=== PATIENT | female | born 1955 | race African-American/Black ===

== ENCOUNTER 2017-08-14 02:26 | Inpatient (IN) | payer BC ==
[2017-08-14] MEDS ORDERED: NACL 0.9% 3 ML SYG IV (03:30)
[2017-08-14] MEDS ORDERED: BISACODYL (EC) 5 MG TAB PO (03:30)
[2017-08-14] MEDS ORDERED: DOCUSATE SODIUM 100 MG CAP PO (03:30)
[2017-08-14] MEDS ORDERED: ZOLPIDEM 5 MG TAB PO (10:00)
[2017-08-14] MEDS: OLANZAPINE (ODT) 5 MG TAB ODT ×2 (11:30→16:00)
[2017-08-14] MEDS: ACETAMINOPHEN 325 MG TAB PO ×2 (15:58→21:43)
[2017-08-14 16:55] LABS: ADD MAN DIFF? NO
[2017-08-14 16:57] LABS: WHITE BLOOD COUNT 9.5 10^3/ul (4.8-10.8)
[2017-08-14 16:58] LABS: BASOPHIL # 0.1 10^3/ul (0.0-0.1); EOSINOPHILS # 0.4 10^3/ul (0.0-0.5); EOSINOPHILS % 3.7 % (0.0-7.0); HEMATOCRIT 30.7 % (37.0-47.0); HEMOGLOBIN 9.8 g/dl (12.0-16.0); LYMPHOCYTES # 1.8 10^3/ul (0.8-2.9); LYMPHOCYTES % 19.3 % (15.0-51.0); MEAN CORPUSCULAR HEMOGLOBIN 29.9 pg (29.0-33.0); MEAN CORPUSCULAR HGB CONC 31.9 g/dl (32.0-37.0); MEAN CORPUSCULAR VOLUME 93.6 fl (82.0-101.0); MEAN PLATELET VOLUME 9.2 fl (7.4-10.4); MONOCYTE # 1.1 10^3/ul (0.3-0.9); MONOCYTES % 11.4 % (0.0-11.0); NEUTROPHIL # 6.1 10^3/ul (1.6-7.5); NEUTROPHILS % 64.2 % (39.0-77.0); PLATELET COUNT 288 10^3/UL (140-415); RED BLOOD COUNT 3.28 10^6/ul (4.20-5.40); RED CELL DISTRIBUTION WIDTH 17.4 % (11.5-14.5)
[2017-08-14 17:18] LABS: ALANINE AMINOTRANSFERASE 22 IU/L (13-69); ALBUMIN 3.6 g/dl (3.3-4.9); ALBUMIN/GLOBULIN RATIO 0.87; ALKALINE PHOSPHATASE 93 IU/L (42-121); ANION GAP 26 (8-16); ASPARTATE AMINO TRANSFERASE 17 IU/L (15-46); BLOOD UREA NITROGEN 90 mg/dl (7-20); CALCIUM 8.7 mg/dl (8.4-10.2); CARBON DIOXIDE 17 mmol/L (21-31); CHLORIDE 101 mmol/L (97-110); GLUCOSE 75 mg/dl (70-220); POTASSIUM 5.1 mmol/L (3.5-5.1); SODIUM 139 mmol/L (135-144); TOTAL PROTEIN 7.7 g/dl (6.1-8.1)
[2017-08-14 17:19] LABS: PHOSPHORUS 8.8 mg/dl (2.5-4.9)
[2017-08-14 17:19] LABS: MAGNESIUM 2.3 mg/dl (1.7-2.5)
[2017-08-14 17:24] LABS: CREATININE 12.25 mg/dl (0.44-1.00)
[2017-08-14] MEDS: ATORVASTATIN 20 MG TAB PO (21:42)
[2017-08-14 22:02] LABS: HEPATITIS B SURFACE ANTIBODY POSITIVE (NEGATIVE)
[2017-08-14 22:05] LABS: HEPATITIS B SURFACE ANTIGEN NEGATIVE (NEGATIVE)
[2017-08-14] MEDS: HEPARIN 1000 UNITS/ML 10 ML INJ CATHETER (22:58)
[2017-08-15] MEDS ORDERED: OLANZAPINE 2.5 MG TAB PO (09:00)
[2017-08-15] MEDS: FLUOXETINE 10 MG CAP PO (11:00)
[2017-08-15] MEDS: OLANZAPINE (ODT) 5 MG TAB ODT (11:00)
[2017-08-15] MEDS: FERROUS SULFATE (EC) 325 MG TAB PO (11:01)
[2017-08-15] MEDS: CALCIUM ACETATE 667 MG CAP PO (11:03)
[2017-08-15] MEDS: ASPIRIN (EC) 81 MG TAB PO (11:03)
[2017-08-15] MEDS: AMLODIPINE 10 MG TAB PO (11:10)
[2017-08-15] MEDS: LOSARTAN 50 MG TAB PO (11:11)
[2017-08-15] MEDS: ONDANSETRON 4 MG INJ IV (11:33)
[2017-08-15 13:43] LABS: ADD MAN DIFF? NO
[2017-08-15 13:48] LABS: BASOPHIL # 0.1 10^3/ul (0.0-0.1); BASOPHILS % 0.9 % (0.0-2.0); EOSINOPHILS # 0.2 10^3/ul (0.0-0.5); EOSINOPHILS % 2.7 % (0.0-7.0); HEMATOCRIT 30.2 % (37.0-47.0); HEMOGLOBIN 9.6 g/dl (12.0-16.0); LYMPHOCYTES # 1.4 10^3/ul (0.8-2.9); MEAN CORPUSCULAR HEMOGLOBIN 29.9 pg (29.0-33.0); MEAN CORPUSCULAR HGB CONC 31.8 g/dl (32.0-37.0); MEAN CORPUSCULAR VOLUME 94.1 fl (82.0-101.0); MEAN PLATELET VOLUME 9.6 fl (7.4-10.4); MONOCYTE # 1.1 10^3/ul (0.3-0.9); MONOCYTES % 11.7 % (0.0-11.0); NEUTROPHIL # 6.3 10^3/ul (1.6-7.5); NEUTROPHILS % 69.4 % (39.0-77.0); PLATELET COUNT 276 10^3/UL (140-415); RED BLOOD COUNT 3.21 10^6/ul (4.20-5.40); RED CELL DISTRIBUTION WIDTH 17.2 % (11.5-14.5)
[2017-08-15 14:08] LABS: ALANINE AMINOTRANSFERASE 19 IU/L (13-69); ALBUMIN 3.6 g/dl (3.3-4.9); ALBUMIN/GLOBULIN RATIO 0.83; ALKALINE PHOSPHATASE 96 IU/L (42-121); ANION GAP 24 (8-16); ASPARTATE AMINO TRANSFERASE 18 IU/L (15-46); BILIRUBIN,INDIRECT 0.4 mg/dl (0-1.1); BILIRUBIN,TOTAL 0.4 mg/dl (0.2-1.3); BLOOD UREA NITROGEN 47 mg/dl (7-20); CALCIUM 8.9 mg/dl (8.4-10.2); CARBON DIOXIDE 24 mmol/L (21-31); CHLORIDE 96 mmol/L (97-110); CREATININE 7.97 mg/dl (0.44-1.00); GLUCOSE 79 mg/dl (70-220); POTASSIUM 4.8 mmol/L (3.5-5.1); SODIUM 139 mmol/L (135-144); TOTAL PROTEIN 7.9 g/dl (6.1-8.1)
[2017-08-15 14:09] LABS: PHOSPHORUS 6.2 mg/dl (2.5-4.9)
[2017-08-15 14:09] LABS: MAGNESIUM 2.1 mg/dl (1.7-2.5)
[2017-08-15] MEDS: ATORVASTATIN 20 MG TAB PO (20:31)
[2017-08-16] MEDS: ACETAMINOPHEN 325 MG TAB PO ×2 (03:48→05:59)
[2017-08-16] MEDS: AMLODIPINE 10 MG TAB PO (09:00)
[2017-08-16] MEDS: LOSARTAN 50 MG TAB PO (09:00)
[2017-08-16] MEDS: FLUOXETINE 10 MG CAP PO (09:35)
[2017-08-16] MEDS: OLANZAPINE (ODT) 5 MG TAB ODT (09:35)
[2017-08-16] MEDS: FERROUS SULFATE (EC) 325 MG TAB PO (09:35)
[2017-08-16] MEDS: ASPIRIN (EC) 81 MG TAB PO (09:36)
[2017-08-16] MEDS: CALCIUM ACETATE 667 MG CAP PO (09:36)
[2017-08-16 14:11] LABS: ALBUMIN 3.3 g/dl (3.3-4.9); ANION GAP 19 (8-16); BLOOD UREA NITROGEN 38 mg/dl (7-20); CALCIUM 8.5 mg/dl (8.4-10.2); CARBON DIOXIDE 25 mmol/L (21-31); CHLORIDE 97 mmol/L (97-110); CREATININE 6.72 mg/dl (0.44-1.00); GLUCOSE 87 mg/dl (70-220); PHOSPHORUS 4.7 mg/dl (2.5-4.9); SODIUM 137 mmol/L (135-144)
[2017-08-16] MEDS: traMADol 50 MG TAB PO (14:12)
[2017-08-16 14:31] LABS: PHOSPHORUS 4.6 mg/dl (2.5-4.9)
[2017-08-16] MEDS: EPOETIN 10000 UNITS/1 ML INJ (ESRD) SC (17:00)
[2017-08-16] MEDS: ATORVASTATIN 20 MG TAB PO (21:00)
[2017-08-17] MEDS: HYDROCODONE/APAP (5/325) TAB PO ×2 (01:46→11:44)
[2017-08-17] MEDS: AMLODIPINE 10 MG TAB PO (09:19)
[2017-08-17] MEDS: ASPIRIN (EC) 81 MG TAB PO (09:19)
[2017-08-17] MEDS: FLUOXETINE 10 MG CAP PO (09:19)
[2017-08-17] MEDS: CALCIUM ACETATE 667 MG CAP PO (09:19)
[2017-08-17] MEDS: LOSARTAN 50 MG TAB PO (09:20)
[2017-08-17] MEDS: OLANZAPINE (ODT) 5 MG TAB ODT (09:20)
[2017-08-17] MEDS: FERROUS SULFATE (EC) 325 MG TAB PO (09:20)
[2017-08-17 11:42] LABS: ADD MAN DIFF? NO
[2017-08-17 11:47] LABS: BASOPHIL # 0.1 10^3/ul (0.0-0.1); EOSINOPHILS # 0.6 10^3/ul (0.0-0.5); EOSINOPHILS % 6.6 % (0.0-7.0); HEMATOCRIT 32.7 % (37.0-47.0); HEMOGLOBIN 10.1 g/dl (12.0-16.0); LYMPHOCYTES % 22.2 % (15.0-51.0); MEAN CORPUSCULAR HEMOGLOBIN 29.4 pg (29.0-33.0); MEAN CORPUSCULAR HGB CONC 30.9 g/dl (32.0-37.0); MEAN CORPUSCULAR VOLUME 95.3 fl (82.0-101.0); MEAN PLATELET VOLUME 10.6 fl (7.4-10.4); MONOCYTE # 1.1 10^3/ul (0.3-0.9); MONOCYTES % 12.3 % (0.0-11.0); NEUTROPHIL # 5.2 10^3/ul (1.6-7.5); NEUTROPHILS % 57.5 % (39.0-77.0); PLATELET COUNT 280 10^3/UL (140-415); RED BLOOD COUNT 3.43 10^6/ul (4.20-5.40); RED CELL DISTRIBUTION WIDTH 17.2 % (11.5-14.5)
[2017-08-17 12:10] LABS: ALBUMIN 3.6 g/dl (3.3-4.9); ANION GAP 19 (8-16); BLOOD UREA NITROGEN 39 mg/dl (7-20); CALCIUM 8.8 mg/dl (8.4-10.2); CARBON DIOXIDE 25 mmol/L (21-31); CHLORIDE 99 mmol/L (97-110); CREATININE 7.38 mg/dl (0.44-1.00); GLUCOSE 63 mg/dl (70-220); PHOSPHORUS 6.4 mg/dl (2.5-4.9); SODIUM 138 mmol/L (135-144)
[2017-08-17 12:11] LABS: MAGNESIUM 2.1 mg/dl (1.7-2.5)
[2017-08-17 12:25] LABS: PHOSPHORUS 6.1 mg/dl (2.5-4.9)
[2017-08-17] MEDS ORDERED: ALBUMIN HUMAN 25% 50 ML IV (17:00)
[2017-08-17] MEDS ORDERED: SODIUM CHLORIDE 0.9% 1L BAG IV (17:00)
[2017-08-17] MEDS ORDERED: HEPARIN 1000 UNITS/ML 10 ML INJ CATHETER (17:00)
[2017-08-17] MEDS: ATORVASTATIN 20 MG TAB PO (21:06)
[2017-08-18] MEDS: CALCIUM ACETATE 667 MG CAP PO (09:44)
[2017-08-18] MEDS: FLUOXETINE 10 MG CAP PO (09:44)
[2017-08-18] MEDS: ASPIRIN (EC) 81 MG TAB PO (09:44)
[2017-08-18] MEDS: FERROUS SULFATE (EC) 325 MG TAB PO (09:44)
[2017-08-18] MEDS: AMLODIPINE 10 MG TAB PO (09:44)
[2017-08-18] MEDS: LOSARTAN 50 MG TAB PO (09:44)
[2017-08-18] MEDS: OLANZAPINE (ODT) 5 MG TAB ODT (09:44)
[2017-08-18 11:57] LABS: ALBUMIN 3.7 g/dl (3.3-4.9); ANION GAP 22 (8-16); BLOOD UREA NITROGEN 42 mg/dl (7-20); CALCIUM 8.8 mg/dl (8.4-10.2); CARBON DIOXIDE 23 mmol/L (21-31); CHLORIDE 97 mmol/L (97-110); GLUCOSE 72 mg/dl (70-220); PHOSPHORUS 6.5 mg/dl (2.5-4.9); POTASSIUM 4.5 mmol/L (3.5-5.1); SODIUM 137 mmol/L (135-144)
[2017-08-18 12:03] LABS: PHOSPHORUS 6.8 mg/dl (2.5-4.9)
[2017-08-18 12:03] LABS: MAGNESIUM 2.1 mg/dl (1.7-2.5)
[2017-08-18 12:08] LABS: CREATININE 7.66 mg/dl (0.44-1.00)
[2017-08-18] MEDS: HYDROCODONE/APAP (5/325) TAB PO ×2 (12:21→23:20)
[2017-08-18 12:27] LABS: ANION GAP 23 (8-16); BLOOD UREA NITROGEN 43 mg/dl (7-20); CALCIUM 8.8 mg/dl (8.4-10.2); CARBON DIOXIDE 22 mmol/L (21-31); CHLORIDE 98 mmol/L (97-110); GLUCOSE 72 mg/dl (70-220); POTASSIUM 4.5 mmol/L (3.5-5.1); SODIUM 138 mmol/L (135-144)
[2017-08-18 12:34] LABS: CREATININE 7.87 mg/dl (0.44-1.00)
[2017-08-18] MEDS: ONDANSETRON 4 MG INJ IV ×2 (14:47→23:20)
[2017-08-18] MEDS ORDERED: EPOETIN ALFA 1,000 UNITS/0.1 ML VIAL SC (17:00)
[2017-08-18] MEDS: HEPARIN 1000 UNITS/ML 10 ML INJ CATHETER (17:56)
[2017-08-18] MEDS: ATORVASTATIN 20 MG TAB PO (22:00)
[2017-08-19] MEDS: ONDANSETRON 4 MG INJ IV (04:44)
[2017-08-19] MEDS: HYDROCODONE/APAP (5/325) TAB PO ×2 (04:44→18:29)
[2017-08-19] MEDS: ASPIRIN (EC) 81 MG TAB PO ×2 (09:00→09:23)
[2017-08-19] MEDS: OLANZAPINE (ODT) 5 MG TAB ODT ×2 (09:00→09:23)
[2017-08-19] MEDS: AMLODIPINE 10 MG TAB PO ×2 (09:00→09:22)
[2017-08-19] MEDS: FLUOXETINE 10 MG CAP PO ×2 (09:00→09:22)
[2017-08-19] MEDS: LOSARTAN 50 MG TAB PO ×2 (09:00→09:22)
[2017-08-19] MEDS: FERROUS SULFATE (EC) 325 MG TAB PO ×2 (09:00→09:23)
[2017-08-19] MEDS: CALCIUM ACETATE 667 MG CAP PO ×2 (09:00→09:23)
[2017-08-19] MEDS ORDERED: SODIUM CHLORIDE 0.9% 1L BAG IV (17:00)
[2017-08-19] MEDS ORDERED: ALBUMIN HUMAN 25% 50 ML IV (17:00)
[2017-08-19] MEDS ORDERED: HEPARIN 1000 UNITS/ML 10 ML INJ CATHETER (17:00)
[2017-08-19] MEDS: ATORVASTATIN 20 MG TAB PO (20:14)
[2017-08-19] MEDS: LORAZEPAM 2 MG INJ IV (23:45)
[2017-08-20] MEDS: LOSARTAN 50 MG TAB PO (07:35)
[2017-08-20] MEDS: AMLODIPINE 10 MG TAB PO (07:35)
[2017-08-20] MEDS: FERROUS SULFATE (EC) 325 MG TAB PO (11:11)
[2017-08-20] MEDS: OLANZAPINE (ODT) 5 MG TAB ODT (11:11)
[2017-08-20] MEDS: ASPIRIN (EC) 81 MG TAB PO (11:11)
[2017-08-20] MEDS: FLUOXETINE 10 MG CAP PO (11:11)
[2017-08-20] MEDS: CALCIUM ACETATE 667 MG CAP PO (11:12)
[2017-08-20] MEDS: HYDROCODONE/APAP (5/325) TAB PO ×2 (14:33→21:17)
[2017-08-20 18:06] LABS: ADD MAN DIFF? NO
[2017-08-20 18:09] LABS: WHITE BLOOD COUNT 10.1 10^3/ul (4.8-10.8)
[2017-08-20 18:09] LABS: BASOPHIL # 0.1 10^3/ul (0.0-0.1); BASOPHILS % 0.8 % (0.0-2.0); EOSINOPHILS # 0.3 10^3/ul (0.0-0.5); EOSINOPHILS % 2.5 % (0.0-7.0); HEMATOCRIT 31.2 % (37.0-47.0); HEMOGLOBIN 9.7 g/dl (12.0-16.0); LYMPHOCYTES # 2.4 10^3/ul (0.8-2.9); MEAN CORPUSCULAR HEMOGLOBIN 29.5 pg (29.0-33.0); MEAN CORPUSCULAR HGB CONC 31.1 g/dl (32.0-37.0); MEAN CORPUSCULAR VOLUME 94.8 fl (82.0-101.0); MEAN PLATELET VOLUME 9.1 fl (7.4-10.4); MONOCYTE # 1.3 10^3/ul (0.3-0.9); MONOCYTES % 12.9 % (0.0-11.0); NEUTROPHILS % 58.9 % (39.0-77.0); PLATELET COUNT 300 10^3/UL (140-415); RED BLOOD COUNT 3.29 10^6/ul (4.20-5.40); RED CELL DISTRIBUTION WIDTH 16.5 % (11.5-14.5)
[2017-08-20 18:29] LABS: ALANINE AMINOTRANSFERASE 15 IU/L (13-69); ALBUMIN 3.4 g/dl (3.3-4.9); ALBUMIN/GLOBULIN RATIO 0.79; ALKALINE PHOSPHATASE 109 IU/L (42-121); ANION GAP 15 (8-16); ASPARTATE AMINO TRANSFERASE 26 IU/L (15-46); BILIRUBIN,INDIRECT 0.1 mg/dl (0-1.1); BILIRUBIN,TOTAL 0.1 mg/dl (0.2-1.3); BLOOD UREA NITROGEN 14 mg/dl (7-20); CALCIUM 8.7 mg/dl (8.4-10.2); CARBON DIOXIDE 33 mmol/L (21-31); CHLORIDE 94 mmol/L (97-110); CREATININE 3.22 mg/dl (0.44-1.00); GLUCOSE 109 mg/dl (70-220); POTASSIUM 3.8 mmol/L (3.5-5.1); SODIUM 138 mmol/L (135-144); TOTAL PROTEIN 7.7 g/dl (6.1-8.1)
[2017-08-20] MEDS: ATORVASTATIN 20 MG TAB PO (21:16)
[2017-08-21 08:08] LABS: PHOSPHORUS 4.1 mg/dl (2.5-4.9)
[2017-08-21] MEDS: OLANZAPINE (ODT) 5 MG TAB ODT (09:00)
[2017-08-21] MEDS: LOSARTAN 50 MG TAB PO (09:59)
[2017-08-21] MEDS: CALCIUM ACETATE 667 MG CAP PO (09:59)
[2017-08-21] MEDS: AMLODIPINE 10 MG TAB PO (10:00)
[2017-08-21] MEDS: FLUOXETINE 10 MG CAP PO (10:00)
[2017-08-21] MEDS: FERROUS SULFATE (EC) 325 MG TAB PO (10:00)
[2017-08-21] MEDS: ASPIRIN (EC) 81 MG TAB PO (10:00)
[2017-08-21 16:57] LABS: HEPATITIS C VIRAL ANTIBODY NEGATIVE (NEGATIVE)
[2017-08-21] MEDS: HYDROCODONE/APAP (5/325) TAB PO (18:16)
[2017-08-21] MEDS: ATORVASTATIN 20 MG TAB PO (21:46)
[2017-08-21] MEDS: traMADol 50 MG TAB PO (21:46)
[2017-08-21] MEDS: LORAZEPAM 2 MG INJ IV (22:27)
[2017-08-22 07:28] LABS: ANION GAP 13 (8-16); BLOOD UREA NITROGEN 32 mg/dl (7-20); CALCIUM 9.1 mg/dl (8.4-10.2); CARBON DIOXIDE 34 mmol/L (21-31); CHLORIDE 97 mmol/L (97-110); CREATININE 5.76 mg/dl (0.44-1.00); GLUCOSE 86 mg/dl (70-220); POTASSIUM 4.4 mmol/L (3.5-5.1); SODIUM 140 mmol/L (135-144)
[2017-08-22] MEDS: CALCIUM ACETATE 667 MG CAP PO (09:00)
[2017-08-22] MEDS: AMLODIPINE 10 MG TAB PO (09:43)
[2017-08-22] MEDS: ASPIRIN (EC) 81 MG TAB PO (09:43)
[2017-08-22] MEDS: FERROUS SULFATE (EC) 325 MG TAB PO (09:43)
[2017-08-22] MEDS: FLUOXETINE 10 MG CAP PO (09:43)
[2017-08-22] MEDS: OLANZAPINE (ODT) 5 MG TAB ODT (09:43)
[2017-08-22] MEDS: LOSARTAN 50 MG TAB PO (09:44)
[2017-08-22] MEDS: ATORVASTATIN 20 MG TAB PO (20:39)
[2017-08-22] MEDS: HYDROCODONE/APAP (5/325) TAB PO (20:39)
[2017-08-23] MEDS: HYDROCODONE/APAP (5/325) TAB PO ×2 (00:53→15:03)
[2017-08-23] MEDS: LORAZEPAM 2 MG INJ IV ×2 (07:05→23:55)
[2017-08-23] MEDS ORDERED: SODIUM CHLORIDE 0.9% 1L BAG IV (08:30)
[2017-08-23] MEDS ORDERED: ALBUMIN HUMAN 25% 50 ML IV (08:30)
[2017-08-23] MEDS: ASPIRIN (EC) 81 MG TAB PO ×2 (09:00→13:16)
[2017-08-23] MEDS: OLANZAPINE (ODT) 5 MG TAB ODT ×2 (09:00→13:16)
[2017-08-23] MEDS: FERROUS SULFATE (EC) 325 MG TAB PO ×2 (09:00→13:16)
[2017-08-23] MEDS: LOSARTAN 50 MG TAB PO (09:00)
[2017-08-23] MEDS: AMLODIPINE 10 MG TAB PO (09:00)
[2017-08-23] MEDS: FLUOXETINE 10 MG CAP PO ×2 (09:00→13:16)
[2017-08-23] MEDS: CALCIUM ACETATE 667 MG CAP PO (09:00)
[2017-08-23] MEDS: HEPARIN 1000 UNITS/ML 10 ML INJ CATHETER (18:26)
[2017-08-23] MEDS: ATORVASTATIN 20 MG TAB PO (20:25)
[2017-08-24 08:06] LABS: ADD MAN DIFF? NO
[2017-08-24 08:14] LABS: WHITE BLOOD COUNT 7.4 10^3/ul (4.8-10.8)
[2017-08-24 08:14] LABS: BASOPHIL # 0.1 10^3/ul (0.0-0.1); BASOPHILS % 0.9 % (0.0-2.0); EOSINOPHILS # 0.2 10^3/ul (0.0-0.5); EOSINOPHILS % 2.3 % (0.0-7.0); HEMATOCRIT 34.1 % (37.0-47.0); HEMOGLOBIN 10.3 g/dl (12.0-16.0); LYMPHOCYTES # 2.5 10^3/ul (0.8-2.9); LYMPHOCYTES % 33.9 % (15.0-51.0); MEAN CORPUSCULAR HEMOGLOBIN 29.1 pg (29.0-33.0); MEAN CORPUSCULAR HGB CONC 30.2 g/dl (32.0-37.0); MEAN CORPUSCULAR VOLUME 96.3 fl (82.0-101.0); MEAN PLATELET VOLUME 9.5 fl (7.4-10.4); MONOCYTE # 1.3 10^3/ul (0.3-0.9); MONOCYTES % 17.1 % (0.0-11.0); NEUTROPHIL # 3.4 10^3/ul (1.6-7.5); NEUTROPHILS % 45.4 % (39.0-77.0); PLATELET COUNT 285 10^3/UL (140-415); RED BLOOD COUNT 3.54 10^6/ul (4.20-5.40); RED CELL DISTRIBUTION WIDTH 15.9 % (11.5-14.5)
[2017-08-24 08:37] LABS: MAGNESIUM 2.2 mg/dl (1.7-2.5)
[2017-08-24 08:37] LABS: PHOSPHORUS 4.4 mg/dl (2.5-4.9)
[2017-08-24 08:39] LABS: CHOLESTEROL 140 mg/dl (100-200)
[2017-08-24 08:39] LABS: CHOL/HDL RATIO 2.9 RATIO; HDL CHOLESTEROL 48 mg/dl (35-98); LDL CHOLESTEROL,CALCULATED 73 mg/dl; TRIGLYCERIDES 94 mg/dl (0-149)
[2017-08-24 08:40] LABS: ANION GAP 17 (8-16); BLOOD UREA NITROGEN 19 mg/dl (7-20); CALCIUM 9.4 mg/dl (8.4-10.2); CARBON DIOXIDE 28 mmol/L (21-31); CHLORIDE 101 mmol/L (97-110); CREATININE 4.65 mg/dl (0.44-1.00); GLUCOSE 78 mg/dl (70-220); POTASSIUM 4.6 mmol/L (3.5-5.1); SODIUM 141 mmol/L (135-144)
[2017-08-24] MEDS: LOSARTAN 50 MG TAB PO (09:00)
[2017-08-24] MEDS: AMLODIPINE 10 MG TAB PO (09:00)
[2017-08-24] MEDS: ASPIRIN (EC) 81 MG TAB PO (09:00)
[2017-08-24] MEDS: FERROUS SULFATE (EC) 325 MG TAB PO (09:00)
[2017-08-24] MEDS: OLANZAPINE (ODT) 5 MG TAB ODT (09:00)
[2017-08-24] MEDS: CALCIUM ACETATE 667 MG CAP PO (09:00)
[2017-08-24] MEDS: FLUOXETINE 10 MG CAP PO (09:00)
[2017-08-24 11:05] LABS: IRON 42 ug/dl (35-150)
[2017-08-24 11:14] LABS: % IRON SATURATION 25 % SAT (22-52); TOTAL IRON BINDING CAPACITY 166 ug/dl (241-421)
[2017-08-24] MEDS: ACETAMINOPHEN 325 MG TAB PO (18:38)
[2017-08-24] MEDS: LORAZEPAM 2 MG INJ IV (18:38)
[2017-08-24] MEDS: HYDROCODONE/APAP (5/325) TAB PO ×2 (20:02→21:26)
[2017-08-24] MEDS: ATORVASTATIN 20 MG TAB PO (20:02)
[2017-08-25] MEDS ORDERED: HEPARIN 1000 UNITS/ML 10 ML INJ CATHETER (06:00)
[2017-08-25] MEDS ORDERED: SODIUM CHLORIDE 0.9% 1L BAG IV (06:00)
[2017-08-25] MEDS ORDERED: ALBUMIN HUMAN 25% 50 ML IV (06:00)
[2017-08-25] MEDS: LOSARTAN 50 MG TAB PO (09:00)
[2017-08-25] MEDS: ASPIRIN (EC) 81 MG TAB PO (09:06)
[2017-08-25] MEDS: OLANZAPINE (ODT) 5 MG TAB ODT (09:06)
[2017-08-25] MEDS: FLUOXETINE 10 MG CAP PO (09:06)
[2017-08-25] MEDS: CALCIUM ACETATE 667 MG CAP PO (09:07)
[2017-08-25 09:53] LABS: ADD MAN DIFF? NO
[2017-08-25 09:56] LABS: BASOPHIL # 0.1 10^3/ul (0.0-0.1); BASOPHILS % 0.6 % (0.0-2.0); EOSINOPHILS # 0.1 10^3/ul (0.0-0.5); EOSINOPHILS % 0.8 % (0.0-7.0); HEMOGLOBIN 9.8 g/dl (12.0-16.0); LYMPHOCYTES # 2.9 10^3/ul (0.8-2.9); LYMPHOCYTES % 27.7 % (15.0-51.0); MEAN CORPUSCULAR HEMOGLOBIN 29.1 pg (29.0-33.0); MEAN CORPUSCULAR HGB CONC 30.6 g/dl (32.0-37.0); MEAN PLATELET VOLUME 9.8 fl (7.4-10.4); MONOCYTE # 1.4 10^3/ul (0.3-0.9); NEUTROPHIL # 6.1 10^3/ul (1.6-7.5); NEUTROPHILS % 57.2 % (39.0-77.0); PLATELET COUNT 325 10^3/UL (140-415); RED BLOOD COUNT 3.37 10^6/ul (4.20-5.40); RED CELL DISTRIBUTION WIDTH 15.9 % (11.5-14.5)
[2017-08-25 09:56] LABS: WHITE BLOOD COUNT 10.6 10^3/ul (4.8-10.8)
[2017-08-25 10:12] LABS: MAGNESIUM 2.3 mg/dl (1.7-2.5)
[2017-08-25 10:12] LABS: PHOSPHORUS 4.8 mg/dl (2.5-4.9)
[2017-08-25 10:20] LABS: ANION GAP 20 (8-16); BLOOD UREA NITROGEN 32 mg/dl (7-20); CALCIUM 9.3 mg/dl (8.4-10.2); CARBON DIOXIDE 27 mmol/L (21-31); CHLORIDE 94 mmol/L (97-110); CREATININE 5.88 mg/dl (0.44-1.00); GLUCOSE 101 mg/dl (70-220); POTASSIUM 5.1 mmol/L (3.5-5.1); SODIUM 136 mmol/L (135-144)
[2017-08-25] MEDS: HYDROCODONE/APAP (5/325) TAB PO (10:37)
[2017-08-25] MEDS: SOD CHLORIDE 0.9% 500 ML IV (17:19)
[2017-08-25] MEDS ORDERED: NALOXONE (0.4 MG/ML) INJ (19:50)
[2017-08-25 20:01] LABS: AADO2 Arterial 186.3 mmHg (7.0-24.0); Allen Test ACCEPTAB; Arterial Base Excess -5.5 mmol/L (-3.0-3); Arterial Blood Gas Oxygen Sat 99.7 mmHG (95.0-98.0); Arterial COHb 0.2 % (0.0-3.0); Arterial Fraction of Oxyhgb 99.1 % (93.0-99.0); Arterial HCO3 18.4 mmol/L (22.0-26.0); Arterial MetHb 0.4 % (0.0-1.5); Arterial Total Hemglobin 8.7 g/dl (12.0-18.0); Arterial pCO2 29.9 mmhg (35-45); MODE MASK - NRB; Site Left Radial
[2017-08-25] MEDS ORDERED: NORepinephrine 8MG/250 ML (PMX 250 ML (20:51)
[2017-08-25] MEDS: ATORVASTATIN 20 MG TAB PO (21:00)
[2017-08-25] MEDS: NORepinephrine 8MG/250 ML (PMX 250 ML IV (21:12)
[2017-08-25] MEDS: ALBUMIN HUMAN 25% 100 ML IV ×2 (21:13→22:00)
[2017-08-25] MEDS: NALOXONE (0.4 MG/ML) INJ IV ×2 (21:16→21:30)
[2017-08-25] MEDS: SOD CHLORIDE 0.9% 100 ML (23:16)
[2017-08-25] MEDS: IODIXANOL LOCM 100 ML BTL (23:17)
[2017-08-25 23:26] LABS: ADD MAN DIFF? NO
[2017-08-25 23:31] LABS: BASOPHILS % 0.2 % (0.0-2.0); EOSINOPHILS % 0.2 % (0.0-7.0); HEMATOCRIT 30.4 % (37.0-47.0); HEMOGLOBIN 9.2 g/dl (12.0-16.0); LYMPHOCYTES # 1.5 10^3/ul (0.8-2.9); LYMPHOCYTES % 12.6 % (15.0-51.0); MEAN CORPUSCULAR HEMOGLOBIN 29.4 pg (29.0-33.0); MEAN CORPUSCULAR HGB CONC 30.3 g/dl (32.0-37.0); MEAN CORPUSCULAR VOLUME 97.1 fl (82.0-101.0); MEAN PLATELET VOLUME 10.5 fl (7.4-10.4); MONOCYTES % 8.5 % (0.0-11.0); NEUTROPHIL # 9.5 10^3/ul (1.6-7.5); NEUTROPHILS % 77.5 % (39.0-77.0); RED BLOOD COUNT 3.13 10^6/ul (4.20-5.40); RED CELL DISTRIBUTION WIDTH 16.2 % (11.5-14.5)
[2017-08-25 23:31] LABS: WHITE BLOOD COUNT 12.3 10^3/ul (4.8-10.8)
[2017-08-25 23:39] LABS: PLATELET COUNT 241 10^3/UL (140-415); POSITIVE DIFF @See below
[2017-08-26 00:04] LABS: LACTIC ACID 4.5 mmol/L (0.5-2.0)
[2017-08-26 00:12] LABS: ANION GAP 20 (8-16); BLOOD UREA NITROGEN 36 mg/dl (7-20); CALCIUM 8.9 mg/dl (8.4-10.2); CARBON DIOXIDE 23 mmol/L (21-31); CHLORIDE 100 mmol/L (97-110); CREATININE 6.48 mg/dl (0.44-1.00); GLUCOSE 155 mg/dl (70-220); POTASSIUM 5.5 mmol/L (3.5-5.1); SODIUM 137 mmol/L (135-144)
[2017-08-26] MEDS: HEPARIN 1000 UNITS/ML 10 ML INJ CATHETER ×2 (04:41→12:34)
[2017-08-26 06:43] LABS: ADD MAN DIFF? NO
[2017-08-26 06:46] LABS: WHITE BLOOD COUNT 8.7 10^3/ul (4.8-10.8)
[2017-08-26 06:46] LABS: BASOPHIL # 0.1 10^3/ul (0.0-0.1); BASOPHILS % 0.7 % (0.0-2.0); EOSINOPHILS % 0.1 % (0.0-7.0); HEMATOCRIT 32.7 % (37.0-47.0); HEMOGLOBIN 10.2 g/dl (12.0-16.0); LYMPHOCYTES # 1.9 10^3/ul (0.8-2.9); LYMPHOCYTES % 21.8 % (15.0-51.0); MEAN CORPUSCULAR HEMOGLOBIN 29.7 pg (29.0-33.0); MEAN CORPUSCULAR HGB CONC 31.2 g/dl (32.0-37.0); MEAN CORPUSCULAR VOLUME 95.3 fl (82.0-101.0); MEAN PLATELET VOLUME 9.8 fl (7.4-10.4); MONOCYTE # 0.9 10^3/ul (0.3-0.9); MONOCYTES % 10.4 % (0.0-11.0); NEUTROPHIL # 5.8 10^3/ul (1.6-7.5); NEUTROPHILS % 66.5 % (39.0-77.0); PLATELET COUNT 261 10^3/UL (140-415); RED BLOOD COUNT 3.43 10^6/ul (4.20-5.40); RED CELL DISTRIBUTION WIDTH 15.9 % (11.5-14.5)
[2017-08-26] MEDS ORDERED: MAGNESIUM SULFATE 1 GM/100 ML D5W IVPB (07:00)
[2017-08-26] MEDS ORDERED: NA BICARBONATE 8.4% 50 ML SYG ×3 (07:00→22:24)
[2017-08-26] MEDS ORDERED: CA CHLORIDE 10% 10 ML SYRINGE (07:00)
[2017-08-26] MEDS ORDERED: EPINEPHrine 0.1 MG/ML SYG (07:00)
[2017-08-26] MEDS ORDERED: DEXTROSE 50% 50 ML SYRINGE (07:00)
[2017-08-26 07:06] LABS: ANION GAP 22 (8-16); BLOOD UREA NITROGEN 16 mg/dl (7-20); CALCIUM 9.5 mg/dl (8.4-10.2); CARBON DIOXIDE 26 mmol/L (21-31); CHLORIDE 97 mmol/L (97-110); GLUCOSE 95 mg/dl (70-220); POTASSIUM 4.1 mmol/L (3.5-5.1); SODIUM 141 mmol/L (135-144)
[2017-08-26 07:12] LABS: PHOSPHORUS 3.8 mg/dl (2.5-4.9)
[2017-08-26 07:12] LABS: MAGNESIUM 2.1 mg/dl (1.7-2.5)
[2017-08-26 07:33] LABS: LACTIC ACID 2.3 mmol/L (0.5-2.0)
[2017-08-26] MEDS: LOSARTAN 50 MG TAB PO (09:00)
[2017-08-26] MEDS: OLANZAPINE (ODT) 5 MG TAB ODT (09:30)
[2017-08-26] MEDS: ASPIRIN (EC) 81 MG TAB PO (09:31)
[2017-08-26] MEDS: CALCIUM ACETATE 667 MG CAP PO (09:31)
[2017-08-26] MEDS: SOD CHLORIDE 0.9% 1,000 ML IV (09:32)
[2017-08-26] MEDS: FLUOXETINE 10 MG CAP PO (09:33)
[2017-08-26] MEDS ORDERED: VANCOMYCIN IV PER PHARMACY XX (13:30)
[2017-08-26] MEDS: LEVOFLOXACIN 500MG/D5W (PMX) 100 ML IVPB (15:04)
[2017-08-26] MEDS: VANCOMYCIN 1.25 GM in SOD CHLORIDE 0.9% 250 ML IVPB (15:05)
[2017-08-26] MEDS: ATORVASTATIN 20 MG TAB PO (20:54)
[2017-08-26] MEDS ORDERED: PHENYLephrine 20MG IN 250 ML 250 ML (22:01)
[2017-08-26 22:21] LABS: Allen Test ACCEPTAB; Arterial Base Excess -18.5 mmol/L (-3.0-3); Arterial Blood Gas Oxygen Sat 98.2 mmHG (95.0-98.0); Arterial COHb 0.3 % (0.0-3.0); Arterial Fraction of Oxyhgb 97.5 % (93.0-99.0); Arterial HCO3 12.6 mmol/L (22.0-26.0); Arterial MetHb 0.4 % (0.0-1.5); Arterial Total Hemglobin 10.3 g/dl (12.0-18.0); Arterial pCO2 55.2 mmhg (35-45); MODE VENT - AC; Site Left Radial
[2017-08-26] MEDS: PHENYLephrine 20MG IN 250 ML 250 ML IV (22:25)
[2017-08-26] MEDS ORDERED: MAGNESIUM SULFATE (40 MG/ML) IV SYG IV* (22:30)
[2017-08-26] MEDS: MAGNESIUM SULFATE 1 GM/D5W 100 ML IVPB (22:34)
== END 2017-08-27 01:04 | disposition expired | DRG 682 ==
LOC: MS4 02:26 → ICU 08-25 20:19
PROC: 5A1D70Z Performance of Urinary Filtration, Intermittent, Less than 6 Hours Per Day (ICD-10-PCS; 2017-08-14)
PROC: 5A12012 Performance of Cardiac Output, Single, Manual (ICD-10-PCS; principal; 2017-08-26)
PROC: 0BH17EZ Insertion of Endotracheal Airway into Trachea, Via Natural or Artificial Opening (ICD-10-PCS; 2017-08-26)
PROC: 5A1935Z Respiratory Ventilation, Less than 24 Consecutive Hours (ICD-10-PCS; 2017-08-26)
DX: I12.0 Hypertensive chronic kidney disease with stage 5 chronic kidney disease or end stage renal disease (principal); N18.6 End stage renal disease; A41.9 Sepsis, unspecified organism; R65.21 Severe sepsis with septic shock; G93.41 Metabolic encephalopathy; F33.9 Major depressive disorder, recurrent, unspecified; E87.5 Hyperkalemia; E83.39 Other disorders of phosphorus metabolism; I95.9 Hypotension, unspecified; I46.9 Cardiac arrest, cause unspecified; D63.1 Anemia in chronic kidney disease; F39 Unspecified mood [affective] disorder; F29 Unspecified psychosis not due to a substance or known physiological condition; F03.90 Unspecified dementia, unspecified severity, without behavioral disturbance, psychotic disturbance, mood disturbance, and anxiety; R53.81 Other malaise; Z66 Do not resuscitate; Z99.2 Dependence on renal dialysis; Z79.82 Long term (current) use of aspirin
CPT/HCPCS: 31500; 36600; 70450; 70486; 70491; 71045; 80048; 80053; 80061; 80069; 82728; 82803; 82962; 83036; 83540; 83605; 83735; 84100; 84443; 85025; 86706; 86708; 86803; 87040; 87081; 87340; 90935; 92950; 93005; 94002; 97110; 97162; 97165; 97530